=== PATIENT | female | born 2000 | race Caucasian/White ===

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

== ENCOUNTER 2022-04-17 18:37 | Emergency (ER) | payer MEDICAID, OTHER ==
--- NOTE | 2022-04-17 19:30 | ED Physician Documentation ---
PD HPI MHE - Stated complaint Stated Complaint: SI - Chief complaint Chief Complaint: MHE - History obtained from History obtained from: Patient - History of Present Illness Primary symptom: Other (1 week ago) Pain level max: 0 Pain level now: 0 - Additional information Additional information: 21-year-old female living around the house. She states that about 10 days ago she had an argument with staff and she wrote a grievance form stating that if she was not "treated like a human" she was going to kill herself. She states that the grievance form was found tonight and she was sent here. She states that those feelings have passed. She is not suicidal. She does not want to harm herself. She is looking forward to moving to [facility]. She is looking forward to going to visit a friend next week. She adamantly denies feeling suicidal currently. She states she was "just mad". Review of Systems : denies: Now [facility] PD PAST MEDICAL HISTORY - Past Medical History Past Medical History: Yes Psych: Depression - Past Surgical History Past Surgical History: No - Present Medications Home Medications: Ambulatory Orders Medication Instructions Recorded Confirmed No Known Home Medications 04/17/22 04/17/22 - Allergies Allergies/Adverse Reactions: Allergies Allergy/AdvReac Type Severity Reaction Status Date / Time amoxicillin [Amoxicillin] Allergy diarrhea Verified 04/17/22 18:53 - Social History Does the pt smoke?: No Smoking Status: Never smoker Does the pt drink ETOH?: No Does the pt have substance abuse?: No - Immunizations Immunizations are current?: Yes - POLST Patient has POLST: No PD ED PE NORMAL - Vitals Vital signs reviewed: Yes - General General: Alert and oriented X 3, No acute distress - HEENT HEENT: Moist mucous membranes - Neck Neck: Supple, no meningeal sign - Cardiac Cardiac: RRR, Strong equal pulses - Respiratory Respiratory: No respiratory distress, Clear bilaterally - Abdomen Abdomen: Soft, Non tender, Non distended - Derm Derm: Warm and dry - Extremities Extremities: No edema, No calf tenderness / cord - Neuro Neuro: Alert and oriented X 3 - Psych Psych: Normal mood, Normal affect Results - Vitals Vitals: Vital Signs - 24 hr 04/17/22 04/17/22 04/17/22 18:48 18:55 19:30 Temperature 37.7 C 37.7 C 37.0 C Heart Rate 115 H 115 H 98 Respiratory 16 16 16 Rate Blood Pressure 143/88 H 143/88 H 130/80 O2 Saturation 98 98 100 Oxygen O2 Source Room air PD Medical Decision Making - ED course Complexity details: considered differential, d/w patient ED course: 21-year-old female with reported SI approximately 10 days ago during an argument. She is not suicidal tonight. She is forward thinking, goal oriented. Patient contracts for safety. Patient counseled regarding signs and symptoms for which I believe and urgent re-evaluation would be necessary. Patient with good understanding of and agreement to plan and is comfortable going home at th is time This document was made in part using voice recognition software. While efforts are made to proofread this document, sound alike and grammatical errors may occur. Departure - Departure Disposition: 01 Home, Self Care Clinical Impression: Outbursts of anger Condition: Good Instructions: ED Stress React Follow-Up: Rebekah Holland MD [Primary Care Provider] - Comments: Please follow-up with your doctor for further care. Please return if you worsen. Crisis Line and is available to talk to someone [email or web address] is also available to chat with someone online if you prefer. There are also many resources on this website and apps for your phone to help with your mental health You can also text the word START to [phone] to chat with someome via text. Discharge Date/Time: 04/17/22 19:30
[2022-04-17 19:32] VITALS: BP 130/80
== END 2022-04-17 19:30 | disposition home or self-care (01) ==
LOC: ED 18:37
DX: R45.4 Irritability and anger (principal)
CPT/HCPCS: 99281; 99283